=== PATIENT | male | born 2000 | race African-American/Black ===

== ENCOUNTER 2023-12-25 10:19 | Day surgery (SDC) | payer OTHER ==
[~2023-12-25 10:19] MED LIST: ceFAZolin 2 GM VIAL ONE; metroNIDAZOLE 500 MG/100 ML 500 MG/100 ML BAG ONE
[2023-12-25] MEDS: LACTATED RINGERS 1,000 ML IV ONE (10:48)
--- NOTE | 2023-12-25 11:17 | ANESTHESIA ---
Pre-Anesthesia VS, & Labs - Diagnosis PILONIDAL CYST - Procedure PILONIDAL CYST EXCISION Vital Signs: Temp Pulse Resp BP Pulse Ox O2 Flow Rate 36.1 C L 75 15 154/90 H 97 12/25/23 10:41 12/25/23 10:41 12/25/23 10:41 12/25/23 10:41 12/25/23 10:41 Height: 6 ft Weight (kg): 103 kg Body Mass Index: 30.8 BMI Classification: Obese - NPO >8 hours Home Medications and Allergies Home Medications: Ambulatory Orders No Known Home Medications 12/23/23 No Known Home Medications 12/23/23 Allergies/Adverse Reactions: Allergies Allergy/AdvReac Type Severity Reaction Status Date / Time No Known Drug Allergies Allergy Verified 12/23/23 13:02 Anes History & Medical History - Anesthetic History Anesthesia Complications: reports: No previous complications Family history of Anesthesia Complications: Denies Family history of Malignant Hyperthermia: Denies - Medical History Cardiovascular: reports: None Pulmonary: reports: None Gastrointestinal: reports: None Urinary: reports: None Musculoskeletal: reports: None Endocrine/Autoimmune: reports: None Skin: reports: None Psychosocial: reports: No issues indicated, Alcohol History of Cancer?: No Exam General: Alert, Oriented x3, Cooperative Dental: WNL Mouth Openin Fingerbreadth Neck Mobility: Normal Mallampati classification: I Respiratory: Lungs clear Cardiovascular: Regular rate Plan Anesthesia Type: General (MAC with GA as backup), MAC Consent for Procedure(s) Verified and Reviewed: Yes Code Status: Attempt Resuscitation ASA classification: 1-Healthy patient Is this case an emergency?: No
[2023-12-25] MEDS ORDERED: LIDOCAINE 1%-EPI 1:100000 20 ML MDV ONE (11:28)
[2023-12-25] MEDS ORDERED: BUPIVACAINE 0.25% PF 30 ML VIAL ONE (11:28)
[2023-12-25] MEDS ORDERED: MIDAZOLAM 2 MG/2 ML VIAL ONE ×2 (11:35→12:20)
[2023-12-25] MEDS ORDERED: fentaNYL 100 MCG/2 ML VIAL ONE (11:35)
[2023-12-25] MEDS ORDERED: PROPOFOL 200 MG/20 ML VIAL IVP ONE (11:38)
--- NOTE | 2023-12-25 11:47 | HISTORY & PHYSICAL EXAMINATION ---
Chief Complaint - Chief Complaint Chief Complaint: here for pilonidal cyst surgery History of Present Illness - History Obtained From Records Reviewed: yes History obtained from: pt Exam Limitations: none - History of Present Illness HPI Comment/Other: pilonidal cyst for many months with waxing and waning inflammation History - Past Medical History Cardiovascular: reports: None Respiratory: reports: None Endocrine/Autoimmune: reports: None GI: reports: None : reports: None HEENT: reports: Chronic vision loss Psych: reports: None Musculoskeletal: reports: None Derm: reports: None MRSA Hx?: No Meds/Allgy - Home Medications Home Medications: Ambulatory Orders Medication Instructions Recorded Confirmed No Known Home Medications 12/23/23 12/23/23 - Allergies Allergies/Adverse Reactions: Allergies Allergy/AdvReac Type Severity Reaction Status Date / Time No Known Drug Allergies Allergy Verified 12/23/23 13:02 Review of Systems - Other Findings Other Findings: 10 pt ros as above otherwise unremarkable Exam - Vital Signs Vital Signs: Vital Signs x48h Temp Pulse Resp BP Pulse Ox 12/25/23 10:41 36.1 C L 75 15 154/90 H 97 - Physical Exam General Appearance: positive: No acute distress, Alert Eyes Bilateral: positive: PERRL, EOMI ENT: positive: No signs of dehydration Neck: positive: No JVD, Trachea midline Respiratory: positive: No respiratory distress Cardiovascular: positive: Regular rate & rhythm Abdomen: positive: No distention Skin: positive: Other (pilonidal cyst present) Neurologic/Psychiatric: positive: Oriented x3 Conclusion/Plan - Problem List (1) Pilonidal cyst Conclusion/Plan: plan excision/ diandra procedure. parq held and consent obtained
[2023-12-25] MEDS ORDERED: GLYCOPYRROLATE 1 MG/5 ML VIAL ONE (12:17)
[2023-12-25] MEDS: BUPIVACAINE 0.25% PF 30 ML VIAL SUBQ ONE (12:31)
[2023-12-25] MEDS: LIDOCAINE 1%-EPI 1:100000 20 ML MDV SUBQ ONE (12:31)
[2023-12-25] MEDS ORDERED: BUPIVACAINE 0.25% PF 10 ML VIAL ONE (12:32)
[2023-12-25] MEDS: BUPIVACAINE 0.25% PF 10 ML VIAL SUBQ ONE (12:35)
[2023-12-25] MEDS ORDERED: HYDROcod/ACETAM 5/325 MG TABLET PO PRN (13:14)
[2023-12-25] MEDS: LACTATED RINGERS 500 ML IV ONE (13:14)
--- NOTE | 2023-12-25 13:18 | OPERATIVE REPORT ---
Operative Report - General Procedure Date: 12/25/23 Planned Procedure: excision pilondal cyst Pre-Op Diagnosis: pilonidal cyst Procedure Performed: excision pilonidal cyst/ intermediate Post Op Diagnosis: pilonidal cyst - Procedure Note Primary Surgeon: ortiz wall Anesthesia Technique: Local, MAC Pathology: not sent Estimated Blood Loss (mL): 2 Drain/Tube Type: Other (none) Indications: painful cyst Findings: as above. 2 sinus tracts and inflammatory nodule right lateral and cephalad Complications: none - Other Other Information/Narrative: The patient was properly identified and brought to the operating room. The patient was carefully repositioned prone. Monitored anesthesia care and sedation was given. Sequential compression devices were placed. Patient was prepped and draped in a sterile fashion and given preoperative antibiotics. Local anesthetic was given to the area. With an 11 blade small incisions were made around the sinus tracts. A right lateral incision was then made. Skin flap was then raised and inflammatory nodule excised. The pilonidal cyst and chronic inflammatory tissue was then removed back to normal healthy tissue. Hemostasis was assured. Deep subcutaneous tissue was closed with interrupted 2- 0 Vicryl suture. Buried interrupted subdermal 3-0 Vicryl sutures were then placed. Vertical mattress interrupted 3-0 nylon sutures were then placed. Dressing was applied. Patient was repositioned supine on the stretcher. Patient was then awakened and brought to recovery in good condition.
[2023-12-25 13:48] VITALS: BP 143/90; O2SAT 100
--- NOTE | 2023-12-25 14:13 | ANESTHESIA POST OP EVALUATION ---
Anesthesia Post Eval - Post Anesthesia Eval Vitals: Last Vital Signs Temp 36.2 C L 12/25/23 13:30 Pulse 62 12/25/23 13:30 Resp 15 12/25/23 13:30 BP 143/90 H 12/25/23 13:30 Pulse Ox 100 12/25/23 13:30 O2 Flow Rate CV Function Including HR & BP: Stable Pain Control: Satisfactory Nausea & Vomiting: Negative Mental Status: Baseline Respiratory Status: Airway Patent Hydration Status: Satisfactory Anesthesia Complications: None
== END 2023-12-25 10:20 | disposition home or self-care (01) ==
LOC: SDS 10:19
PROVIDERS: ATTEND Surgery
DX: L05.91 Pilonidal cyst without abscess (principal); E66.9 Obesity, unspecified; Z68.30 Body mass index [BMI] 30.0-30.9, adult
CPT/HCPCS: 11771; J7120